=== PATIENT | female | born 1995 | race Caucasian/White ===

== ENCOUNTER 2017-03-13 23:08 | Emergency (ER) | payer OTHER ==
[2017-03-14 00:15] LABS: BASOPHIL % 0.3 % (0-2); PLATELET COUNT 153 x10^3mcL (130-400)
[2017-03-14 00:17] LABS: RED CELL DISTRIBUTION WIDTH 14.9 % (11.5-14.5)
[2017-03-14 00:21] LABS: CALCIUM 9.1 mg/dL (8.5-10.1); CARBON DIOXIDE 25.7 mmol/L (21-32); CHLORIDE SERUM 106 mmol/L (98-107); CREATININE SERUM 0.5 mg/dL (0.6-1.0); GFR1 > 60 mL/min; GLUCOSE SERUM 115 mg/dL (74-106); POTASSIUM SERUM 3.7 mmol/L (3.5-5.1); SODIUM SERUM 143 mmol/L (136-145)
[2017-03-14 00:25] LABS: ALKALINE PHOSPHATASE 52 U/L (46-116); ALT/SGPT 35 U/L (14-59); AST/SGOT 25 U/L (15-37); BILIRUBIN TOTAL 0.2 mg/dL (0.20-1.00); TOTAL PROTEIN, SERUM 6.9 g/dL (6.4-8.2)
[2017-03-14 00:32] LABS: ALBUMIN 2.7 g/dL (3.4-5.0)
[2017-03-14 00:41] LABS: CK-MB 0.8 ng/mL (0-3.6)
[2017-03-14 06:19] VITALS: BP 119/67
== END 2017-03-14 06:19 | disposition short-term general hospital (02) ==
LOC: ED 23:08
PROVIDERS: Emergency Medicine
DX: O26.892 Other specified pregnancy related conditions, second trimester (principal); R07.89 Other chest pain; R10.9 Unspecified abdominal pain; R06.00 Dyspnea, unspecified; Z3A.27 27 weeks gestation of pregnancy
CPT/HCPCS: 36600; 83880; 85378; Q0092